=== PATIENT | female | born 1990 | race Caucasian/White ===

== ENCOUNTER → 2017-02-12 | Outpatient (CLI) | payer OTHER | LOC: COL.RAD 01-25 08:30 | DX: S73.191A Other sprain of right hip, initial encounter (principal) | CPT/HCPCS: A9585; Q9967 ==

== ENCOUNTER 2020-02-10 10:17 | Inpatient (IN) | payer OTHER ==
[~2020-02-10] VITALS: Ht 157.6 cm; Wt 75.0 kg
[2020-02-19] VITALS (57 sets, daily range): BP systolic 102–1127; BP diastolic 62–103; PULSE 54–116; TEMP 97.6–98.6
[2020-02-19] MEDS ORDERED: SYNTHROID0.075 MG/T PO (07:12)
[2020-02-19] MEDS ORDERED: NATURAL IRON65 MG (07:13)
[2020-02-19] MEDS ORDERED: PRENATAL TABLET PO (07:13)
--- NOTE | 2020-02-19 07:30 | NUR ---
0655- Pt arrives on unit ambulatory for scheduled induction with , Isidro. Oriented to room. Pt into bathroom, changes into gown. 704- Pt into bed, EFM and TOCO on and tracing. Assessment completed. 719- IV start without difficulty, labs obtained. IVF bolus initiated. FHR tracing Category II. O2 sat monitor on. 732- Pt repositioned to .
[2020-02-19 08:00] LABS: BASO % 0.2 % (0.0-2.0); EOS # 0.1 (0.0-0.7); EOS % 0.8 % (0-4.0); GRAN # 4.4 (1.4-6.5); LYMPH # 1.6 (1.2-3.4); MEAN CELL VOLUME 89 fl (80.0-100.0); MEAN CORPUSCULAR HEMOGLOBIN 30 pg (27.0-31.0); MEAN CORPUSCULAR HGB CONC 34 g/dl (33.0-37.0); MONO # 0.6 (0.1-0.6); MONO % 8.4 % (1.7-9.3); PLATELET COUNT 148 K/mm3 (130-400); RED BLOOD COUNT 3.66 M/mm3 (4.10-5.30)
--- NOTE | 2020-02-19 08:00 | NUR ---
0745- Dr Monzon at nurses station, reviews strip with this RN. 500ML LR bolus infused, rate decreased to 125ml/hr. Category I FHR tracing noted. 0800- Pitocin started per policy at 2mu/min.
[2020-02-19 08:01] LABS: HEMATOCRIT 32.7 % (37.0-47.0)
--- NOTE | 2020-02-19 12:15 | NUR ---
Intermittent, subtle late decelerations noted. 1212- Deleration noted down to 90bpm and lasted 50-60 seconds. RN to bedside. SVE /-1, Pt repositioned to RL with LL up in strrrup. EFM and TOCO adjusted. Pt tolerated well.
--- NOTE | 2020-02-19 12:30 | NUR ---
Minimal variability noted with intermittent late decelerations noted. Pt repositioned to LL with RL in stirrup. EFM and TOCO adjusted.
--- NOTE | 2020-02-19 14:00 | NUR ---
1351- Pt repositioned to LL. FHR deceleration noted, lasted approx. 5 minutes. SVE by this RN /-1, Pt repositioned to RL. Pitocin off. O2 on at 10L via mask.
--- NOTE | 2020-02-19 15:15 | NUR ---
1501- Dr Monzon at bedside. SVE /-1, states that she feels like the cervix is swelling and not as stretchy as before. Discusses at length the FHR tracing since being admitted and changes seen. Discusses plan of care and options. Pt and spouse deny questions. Plan is to increase Pitocin and do frequent position changes and reevaluate in 1-2 hrs. Pt agrees with plan. 1514- Pitocin increased to 4mu. Pt assisted to knee chest position.
--- NOTE | 2020-02-19 17:00 | NUR ---
1623- FHR recurrent late decelerations noted. SVE by this RN /-1. Pt repositioned to knee chest, Pitocin off. IVF bolus initiated. O2 sat monitor on and tracing. 1632- FHR decelerations resolve, minimal variability noted, no accelerations. 1645- Dr Monzon at bedside, SVE unchanged from last exam. Decision made to procede with primary section. Pt and deny quesitons, calm. Pt prepped for surgery. 1700- EFM and TOCO off, Pt taken to OR via bed.
--- NOTE | 2020-02-19 18:13 | NUR ---
1812- O2 sat dropped from 94-86% over approximately 30 seconds. Pt unresponsive to shouting and shaking. Dr Friend outside of PACU and called to bedside, there immediately. Rosalinda Whittington CRNA and KRISSY Mason at bedside following. Pt responds to fundal massage but barely opens eyes and no communication when prompted. Uterus firm, minimal bleeding, no clots noted. O2 sat slowly returns to 95% over 1 minute. See anesthesia record. This RN and Dr Monzon remain at bedside with Pt. 1819- Dr Monzon out to nurses station, this RN remains at bedside.
--- NOTE | 2020-02-19 20:10 | NUR ---
Patient awake and oriented. Patient sitting up in bed infant.
[2020-02-20 02:01] VITALS: BP 117/72; PULSE 87; TEMP 98.4
[2020-02-20 05:30] VITALS: BP 120/69; PULSE 92; TEMP 98.5
[2020-02-20 07:55] LABS: MEAN CELL VOLUME 91 fl (80.0-100.0); MEAN CORPUSCULAR HGB CONC 33 g/dl (33.0-37.0); MEAN PLATELET VOLUME 11.9 fl (7.4-10.4); PLATELET COUNT 104 K/mm3 (130-400); RED BLOOD COUNT 2.79 M/mm3 (4.10-5.30); REDCELL DISTRIBUTION WIDTH-CV 14.1 % (11.5-14.5)
[2020-02-20 07:57] LABS: HEMATOCRIT 25.3 % (37.0-47.0); HEMOGLOBIN 8.4 g/dl (12.5-16.0); MEAN CORPUSCULAR HEMOGLOBIN 30 pg (27.0-31.0)
[2020-02-20 08:02] VITALS: BP 127/70; PULSE 77; TEMP 98.9
[2020-02-20 15:44] VITALS: BP 124/78; PULSE 92; TEMP 98.5
[2020-02-20 21:50] VITALS: BP 126/75; PULSE 81; TEMP 98
[2020-02-21 08:30] VITALS: BP 118/71; PULSE 77; TEMP 97.8
[2020-02-21] MEDS ORDERED: ULTRAM 50MG TAB50 MG PO (10:56)
[2020-02-21] MEDS ORDERED: IBU800 M1 PO (10:56)
--- NOTE | 2020-02-21 16:03 | NUR ---
1315 DISCHARGE INSTRUCTIONS REVIEWED WITH PATIENT. PATIENT VERBALIZED UNDERSTANDING. PATIENT WILL NOTIFY THIS RN WHEN READY TO LEAVE. [id number] PATIENT LEFT IN WHEELCHAIR PUSHED BY THIS RN. PATIENT IN NO APPARENT DISTRESS. PATIENT ACCOMPANIED BY THIS RN AND SPOUSE. ALL PERSONAL BELONGINGS GATHERED FROM PATIENT ROOM.
== END 2020-02-21 13:55 | disposition home or self-care (01) | DRG 787 ==
LOC: LDR 02-19 06:45 → OB 02-19 10:16
PROVIDERS: ADMIT Student in an Organized Health Care Education/Training Program
PROC: 10D00Z1 Extraction of Products of Conception, Low, Open Approach (ICD-10-PCS; principal; 2020-02-19)
DX: O99.284 Endocrine, nutritional and metabolic diseases complicating childbirth (principal); Q79.60 Ehlers-Danlos syndrome, unspecified; O75.89 Other specified complications of labor and delivery; E03.9 Hypothyroidism, unspecified; O99.02 Anemia complicating childbirth; O69.89X0 Labor and delivery complicated by other cord complications, not applicable or unspecified; D64.9 Anemia, unspecified; Z3A.39 39 weeks gestation of pregnancy; Z37.0 Single live birth
CPT/HCPCS: J0690; J1885; J2175; J2210; J2250; J2370; J2400; J2405; J2550; J2590; J2795; J3010; J7120